=== PATIENT | female | born 1970 | race African-American/Black ===

== ENCOUNTER 2017-09-30 19:10 | Emergency (ER) | payer OTHER ==
[2017-09-30 19:23] VITALS: BP 118/62; PULSE 70; TEMP 98.2; BMI 22.8
--- NOTE | 2017-09-30 19:23 | PDOC ---
Rapid Medical Evaluation Time Seen by Provider: 09/30/17 19:20 Medical Evaluation: Allergies Allergy/AdvReac Type Severity Reaction Status Date / Time ragweed pollen Allergy Verified 06/03/17 10:07 09/30/17 19:20 I have performed a brief in-person evaluation of this patient. The patient presents with a chief complaint of: "ate a 'very fine squiggly wire ' from my food, coughing up blood", currently on menses Pertinent physical exam findings: well appearing I have ordered the following: CXR The patient will proceed to the ED for further evaluation. Discharge Disposition - Diagnosis Swallowed foreign body - Referrals - Patient Instructions - Post Discharge Activity
--- NOTE | 2017-09-30 21:08 | PDOC ---
History of Present Illness - General Chief Complaint: Foreign Body (FB) Stated Complaint: SWALLOWED FOREIGN OBJECT Time Seen by Provider: 09/30/17 19:20 History Source: Patient - History of Present Illness Initial Comments: 09/30/17 21:04 46 year old female reports accidentally eating a "squiggly wire." that was in food. shortly after patient tried to vomit in out and noted small amount of blood. Past History - Past Medical History Allergies/Adverse Reactions: Allergies Allergy/AdvReac Type Severity Reaction Status Date / Time ragweed pollen Allergy Verified 09/30/17 19:24 Home Medications: Ambulatory Orders [place] Carbonate [Lithobid] 300 mg PO HS 06/03/17 Risperidone [Risperdal] 2 mg PO HS 06/03/17 Anemia: No Asthma: No Cancer: No Cardiac Disorders: No CVA: No COPD: No CHF: No Dementia: No Diabetes: No GI Disorders: No Disorders: No HTN: No Hypercholesterolemia: No Liver Disease: No Seizures: No Thyroid Disease: Yes - Immunization History Immunization Up to Date: Yes - Suicide/Smoking/Psychosocial Hx Smoking History: Never smoked Have you smoked in the past 12 months: No Hx Alcohol Use: No Drug/Substance Use Hx: No Review of Systems - Review of Systems Able to Perform ROS?: Yes Is the patient limited Russian proficient: No HEENTM: Yes: Other (irritation in throat) Respiratory: No: Symptoms reported, See HPI, Cough, Orthopnea, Shortness of Breath, SOB with Exertion, SOB at Rest, Stridor, Wheezing, Productive cough, Hemoptysis, Other *Physical Exam - Vital Signs Last Vital Signs Temp Pulse Resp BP Pulse Ox 98.2 F 70 20 118/62 99 09/30/17 19:20 09/30/17 19:20 09/30/17 19:20 09/30/17 19:20 09/30/17 19:20 - Physical Exam General Appearance: Yes: Appropriately Dressed Neck: positive: Supple. negative: Normal Thyroid (thyroidmegaly noted) Respiratory/Chest: positive: Lungs Clear, Normal Breath Sounds. negative: Chest Tender, Respiratory Distress, Accessory Muscle Use, Labored Respiration, Rapid RR, Decreased Breath Sounds, Paradoxal Breathing, Crackles, Rales, Rhonchi , Stridor, Wheezing, Hyperresonant, Dullness, Plerual Rub, Other Cardiovascular: positive: Regular Rhythm, Regular Rate Gastrointestinal/Abdominal: positive: Normal Bowel Sounds, Soft Extremity: positive: Normal Capillary Refill, Normal Inspection, Normal Range of Motion Integumentary: positive: Normal Color, Dry, Warm Neurologic: positive: Fully Oriented, Alert, Normal Mood/Affect Medical Decision Making - Medical Decision Making 09/30/17 21:07 no foreign body noted in xray. patient is not in any distress. will d/c home . tolerated PO water. *DC/Admit/Observation/Transfer Diagnosis at time of Disposition: Swallowed foreign body Qualifiers: Encounter type: initial encounter Qualified Code(s): T18.9XXA - Foreign body of alimentary tract, part unspecified, initial encounter - Discharge Dispostion Disposition: HOME - Referrals Referrals: Sd Brush [Primary Care Provider] - - Patient Instructions Printed Discharge Instructions: DI for Foreign Body, Swallowed-Adult - Post Discharge Activity
== END 2017-09-30 21:24 | disposition home or self-care (01) ==
LOC: JER 19:10 → JERFT 19:10 → JER 21:24
DX: T18.9XXA Foreign body of alimentary tract, part unspecified, initial encounter (principal)
CPT/HCPCS: 70360-TC-FY; 71046-TC-FY; 74019-TC-FY; 99283-25